=== PATIENT | female | born 1990 | race Hispanic/Latino ===

== ENCOUNTER 2023-09-02 17:27 | Emergency (ER) | payer BC ==
[~2023-09-02] VITALS: Ht 154.9 cm; Wt 80.3 kg
[2023-09-02 17:38] VITALS: BP 129/84; PULSE 78; RESP 18
[2023-09-02 18:24] LABS: BASOPHILS # (AUTO) 0.04 K/uL (0.00-0.20); BASOPHILS % (AUTO) 0.5 % (0.0-5.0); EOSINOPHILS # (AUTO) 0.33 K/uL (0.00-0.70); EOSINOPHILS % (AUTO) 3.8 % (0.0-8.0); HEMATOCRIT 39.5 % (36-48); IMMATURE GRANULOCYTE ABSOLUTE 0.03 K/uL (0-1); LYMPHOCYTES # (AUTO) 2.8 K/uL (1.0-4.8); LYMPHOCYTES % (AUTO) 32.1 % (21.0-51.0); MEAN CORPUSCULAR HEMOGLOBIN 28.3 pg (27.0-33.0); MEAN CORPUSCULAR HGB CONC 33.9 g/dL (32.0-36.0); MEAN CORPUSCULAR VOLUME 83.5 fL (79-99); MONOCYTES # (AUTO) 0.5 K/uL (0.1-1.0); MONOCYTES % (AUTO) 5.6 % (3.0-13.0); NEUTROPHILS # (AUTO) 5.1 K/uL (1.8-7.7); NEUTROPHILS % (AUTO) 57.7 % (40.0-77.0); PLATELET COUNT (AUTO) 376 K/uL (130-400); RED BLOOD CELL COUNT(AUTO) 4.73 MIL/uL (4.00-5.50); RED CELL DISTRIBUTION WIDTH 12.6 % (11.0-15.5); WHITE BLOOD COUNT (AUTO) 8.8 K/uL (4.8-10.8)
[2023-09-02 18:36] LABS: CREATININE 0.5 mg/dL (0.5-1.5); POTASSIUM 4.1 mmol/L (3.5-5.1)
[2023-09-02 18:40] LABS: ALBUMIN 4.1 g/dL (3.5-5.0); BILIRUBIN,TOTAL 0.5 mg/dL (0.2-1.0)
[2023-09-02 18:53] LABS: INR < 0.93 (0.85-1.15); PROTHROMBIN TIME 10.7 SEC (9.6-11.6)
[2023-09-02 18:54] LABS: PARTIAL THROMBOPLASTIN TIME 31.6 SEC (26.3-35.5)
[2023-09-02] MEDS ORDERED: IBUP-2077 PO (20:57)
== END 2023-09-02 21:18 | disposition left against medical advice (07) ==
LOC: EDH 17:27
DX: L52 Erythema nodosum (principal); Z90.49 Acquired absence of other specified parts of digestive tract
CPT/HCPCS: 36415; 80053; 85025; 85610; 85730

== ENCOUNTER 2024-12-30 13:14 | Emergency (ER) | payer BC ==
[~2024-12-30] VITALS: Ht 154.9 cm; Wt 81.6 kg
[2024-12-30 13:14] VITALS: BP 123/77
[~2024-12-30 13:14] MED LIST: IBUP-2077 PO
[2024-12-30 14:20] VITALS: PULSE 91; RESP 18
[2024-12-30 14:21] LABS: BASOPHILS # (AUTO) 0.03 K/uL (0.00-0.20); BASOPHILS % (AUTO) 0.3 % (0.0-5.0); EOSINOPHILS # (AUTO) 0.02 K/uL (0.00-0.70); EOSINOPHILS % (AUTO) 0.2 % (0.0-8.0); HEMATOCRIT 41.4 % (36-48); IMMATURE GRANULOCYTE ABSOLUTE 0.04 K/uL (0-1); LYMPHOCYTES # (AUTO) 2.2 K/uL (1.0-4.8); LYMPHOCYTES % (AUTO) 19.2 % (21.0-51.0); MEAN CORPUSCULAR HEMOGLOBIN 27.7 pg (27.0-33.0); MEAN CORPUSCULAR HGB CONC 32.4 g/dL (32.0-36.0); MEAN CORPUSCULAR VOLUME 85.7 fL (79-99); MONOCYTES # (AUTO) 0.2 K/uL (0.1-1.0); MONOCYTES % (AUTO) 1.7 % (3.0-13.0); NEUTROPHILS # (AUTO) 8.9 K/uL (1.8-7.7); NEUTROPHILS % (AUTO) 78.2 % (40.0-77.0); PLATELET COUNT (AUTO) 396 K/uL (130-400); RED BLOOD CELL COUNT(AUTO) 4.83 MIL/uL (4.00-5.50); RED CELL DISTRIBUTION WIDTH 12.7 % (11.0-15.5); WHITE BLOOD COUNT (AUTO) 11.3 K/uL (4.8-10.8)
[2024-12-30] MEDS: IpraTROPium/alBUTERol SULFATE 3 ML SOLUTION IH STA (14:23)
[2024-12-30 14:28] LABS: CREATININE 0.6 mg/dL (0.5-1.0); POTASSIUM 3.6 mmol/L (3.5-5.1)
--- NOTE | 2024-12-30 15:01 | HMCIMG ---
Exam Type: CHEST 1VW Clinical Information: cp,cough Comparison: None Findings: The lungs are clear of infiltrates. The heart is normal in size. The bony and soft tissue structures of the chest are unremarkable. Impression: Clear lungs.
[2024-12-30] MEDS: BENZONATATE 100 MG CAPSULE PO STA (15:03)
[2024-12-30] MEDS: dexaMETHasone SOD PHOSPHATE 4 MG/ML 1ML VIAL IVP STA (15:05)
[2024-12-30 16:24] LABS: RAPID GROUP A STREP negative (NEGATIVE)
[2024-12-30 16:27] LABS: SARS-CoV-2, RNA, NAAT NEGATIVE SARS CoV-2 (NEGATIVE)
[2024-12-30 16:34] LABS: INFLUENZA TYPE A Negative For Type A (NEGATIVE); INFLUENZA TYPE B Negative For Type B (NEGATIVE)
[2024-12-30] MEDS ORDERED: BUDE10.26 IH (16:40)
--- NOTE | 2024-12-30 16:51 | ERN ---
ED Note History of Present Illness Stated Complaint: COUGH Chief Complaint: Congestion Time Seen by MD: 13:15 Time Seen by Midlevel: 13:20 Dictation: 34-year-old female with a history of asthma coming in complaining of cough and shortness a breath. Patient states it has been going on for the last week. Patient states she went to her PCP and they put her on albuterol, antibiotics, and steroids however states has not seen a difference in his here for re- evaluation. At the time of examination patient was awake alert and oriented x4, speaking in full sentences, no respiratory distress noted, vital signs stable. Allergies: Coded Allergies: No Known Drug Allergies (Unverified Allergy, Unknown, 09/02/23) Home Meds Active Scripts Budesonide/Formoterol Fumarate (Budesonide-Formoterol 160-4.5) 160 Mcg-4.5 Mcg/Actuation Hfa.aer.ad, 2 PUFF IH BID PRN for SHORTNESS OF BREATH for 30 Days, #10.2 GM 0 Refills Prov:ARAVIND CROWDER PROFILER OPERATOR 12/30/24 Past Medical History Past Medical History: No Pertinent History Surgical History: Appendectomy, Cholecystectomy Surgical History Other: EXPLORATORY ABD SX, REPAIRED AORTA History: Not Applicable Review of System Dictation Constitutional: Negative for fever,chills, and weight loss Eyes: Negative for injury, pain,redness, and discharge ENT: Negative for injury,pain or swelling Cardiovascular: Negative for chest pain, palpitations, and edema Respiratory: Finding of cough and shortness a breath Abdomen/GI: Negative for abdominal pain, nausea, vomiting, diarrhea, and constipation Back: Negative for injury and pain : Negative for injury, bleeding and discharge MS/Extremity: Negative for injury and deformity Skin: Negative for rash, and discoloration Neuro: Negative for headache, weakness, numbness, tingling, and seizure Psych: Negative for suicide ideation, homicidal ideation, and hallucinations Review of Systems: was completed Initial Vital Sign VS Vital Signs Date Time Temp Pulse Resp B/P (MAP) Pulse Ox O2 Delivery O2 Flow Rate FiO2 12/30/24 13:14 98.8 92 18 123/77 94 Room Air 0 Physical Exam Dictation General: awake, alert, NAD Head/Face: Normocephalic, atraumatic Eyes: PERRL, EOMI, vision at baseline ENT: oral cavity clear, TMs clear, no signs of infection Neck: Trachea midline, supple, no nuchal rigidity Cardiovascular: RRR, normal S1/S2, No MRGs, no JVD Respiratory: CTAB, no respiratory distress, No rales or wheezes Abdomen: Soft, non-tender, non-distended, normal bowel sounds, no guarding or rebound. Skin: Warm, dry, normal turgor, no rash MS/Extremity: Pulses equal, no cyanosis, neurovascular intact, FROM Neuro: COAx4, GCS 15, strength 5/5, CN 2-12 intact, normal cerebellar exam, normal gait, Psych: Normal behavior, mood, and affect normal Results (Laboratory/Radiology) Laboratory/Radiology Laboratory Tests Test 12/30/24 14:07 12/30/24 16:00 White Blood Count 11.3 K/uL (4.8-10.8) H Red Blood Count 4.83 MIL/uL (4.00-5.50) Hemoglobin 13.4 g/dL (12.0-16.0) Hematocrit 41.4 % (36-48) Mean Corpuscular Volume 85.7 fL (79-99) Mean Corpuscular Hemoglobin 27.7 pg (27.0-33.0) Mean Corpuscular Hemoglobin Concent 32.4 g/dL (32.0-36.0) Red Cell Distribution Width 12.7 % (11.0-15.5) Platelet Count 396 K/uL (130-400) Mean Platelet Volume 9.5 fL (7.5-10.5) Immature Granulocyte % (Auto) 0.4 % (0-1) Neutrophils (%) (Auto) 78.2 % (40.0-77.0) H Lymphocytes (%) (Auto) 19.2 % (21.0-51.0) L Monocytes (%) (Auto) 1.7 % (3.0-13.0) L Eosinophils (%) (Auto) 0.2 % (0.0-8.0) Basophils (%) (Auto) 0.3 % (0.0-5.0) Neutrophils # (Auto) 8.9 K/uL (1.8-7.7) H Lymphocytes # (Auto) 2.2 K/uL (1.0-4.8) Monocytes # (Auto) 0.2 K/uL (0.1-1.0) Eosinophils # (Auto) 0.02 K/uL (0.00-0.70) Basophils # (Auto) 0.03 K/uL (0.00-0.20) Absolute Immature Granulocyte (auto 0.04 K/uL (0-1) Nucleated Red Blood Cells 0.0 % (0.0-0.19) Sodium Level 140 mmol/L (136-145) Potassium Level 3.6 mmol/L (3.5-5.1) Chloride Level 104 mmol/L (101-111) Carbon Dioxide Level 31 mmol/L (21-32) Blood Urea Nitrogen 10 mg/dL (7-18) Creatinine 0.6 mg/dL (0.5-1.0) Glomerular Filtration Rate Calc 122 mL/min (>90) Random Glucose 96 mg/dL (70-105) Lactic Acid Level 1.2 mmol/L (0.8-2.5) Total Calcium 8.6 mg/dL (8.5-10.1) Human Chorionic Gonadotropin, Quant 1 mIU/mL (0-5) Influenza Type A Antigen Negative For Type A Influenza Type B Antigen Negative For Type B SARS-CoV-2, RNA, NAAT NEGATIVE SARS CoV-2 Group A Streptococcus Rapid negative (NEGATIVE) Labs Reviewed?: Yes X-RAY Comment: [address] [id number] IMAGING REPORT Signed PATIENT: FELICITAS MORALES MR#: [id number] : 1990 SEX: F AGE: 34 LOCATION: [facility] ORDER 1402 STATUS: REG ER REPORT#: [id number] SERVICE 1400 REASON: cp,cough ORDERING PHYSICIAN: ARAVIND CROWDER NP PROCEDURE: CXR1VW - CHEST 1VW Exam Type: CHEST 1VW Clinical Information: cp,cough Comparison: None Findings: The lungs are clear of infiltrates. The heart is normal in size. The bony and soft tissue structures of the chest are unremarkable. Impression: Clear lungs. DICTATED BY: ADAN VILLARREAL MD DATE: 12/30/24 1454 ELECTRONICALLY SIGNED BY: ADAN VILLARREAL MD DATE: 12/30/24 1501 ED Course ED Course Orders Procedure Category Date Status Time Cbc With Differential LAB 12/30/24 Complete 14:00 Basic Metabolic Panel LAB 12/30/24 Complete 14:00 Lactic Acid LAB 12/30/24 Complete 14:00 Covid Rna Naat LAB 12/30/24 Complete 14:00 Influenza Type A & B, LAB 12/30/24 Complete Rapid 14:00 Rapid (Group A Strep) LAB 12/30/24 Complete 14:00 Chest 1vw RAD 12/30/24 Resulted 14:00 Hcg,Quantitative LAB 12/30/24 Complete 14:00 Dexamethasone 4mg/Ml PHA 12/30/24 Complete 1ml Vial (Dexametha 14:00 Benzonatate 100 Mg PHA 12/30/24 Complete Capsule (Tessalon 100 14:00 Ipratropium/Albuterol PHA 12/30/24 Complete Neb (Duoneb) 14:00 Current Medications Medications (Trade) Dose Ordered Sig/Maria Isabel Route PRN Reason Start Time Stop Time Status Last Admin Dose Admin Albuterol (DUOneb) 1 UDVIAL ONCE STAT IH 12/30/24 14:00 12/30/24 14:05 DC 12/30/24 14:23 Benzonatate (Tessalon 100mg Caps) 200 mg ONCE STAT PO 12/30/24 14:00 12/30/24 14:05 DC 12/30/24 15:03 Dexamethasone Sodium Phosphate (dexaMETHasone 4MG/ML 1ML VIAL) 6 mg ONCE STAT IVP 12/30/24 14:00 12/30/24 14:05 DC 12/30/24 15:05 Vital Signs Date Time Temp Pulse Resp B/P (MAP) Pulse Ox O2 Delivery O2 Flow Rate FiO2 12/30/24 14:20 91 18 12/30/24 13:14 98.8 92 18 123/77 94 Room Air 0 Medical Decision Making MDM MDM: 34-year-old female with a history of asthma coming in complaining of cough and shortness a breath. Patient states it has been going on for the last week. Patient states she went to her PCP and they put her on albuterol, antibiotics, and steroids however states has not seen a difference in his here for re- evaluation. At the time of examination patient was awake alert and oriented x4, speaking in full sentences, no respiratory distress noted, vital signs stable. Blood work unremarkable. SARs swabs negative. Chest x-ray shows no acute findi ng. Patient received nebulizer treatment, steroids and cough medication while in the emergency room. Case discussed with the ER MD, ER MD recommended switch patient's inhaler from the albuterol to budesonide. Patient received different inhaler prescription. Educated patient extensively on taking her medications and switching her albuterol to this new inhaler. Educated if this does not help her she needs to follow up with her PCP as she might need different prescriptions. Patient verbalized understanding, answered all questions. Also discussed on red flag symptoms of when to return back to the ER patient verbalized understanding, answered all questions. At the time of discharge patient's requesting Diflucan because she was on prednisone and states she gets yeast infections. Differential diagnosis: Pneumonia, bronchitis, influenza, COVID, flu, viral syndrome Rationale: Tests considered and ordered secondary to shared decision making include: Previous outside records reviewed: Old ER visits. Risk of complication and/or morbidity or mortality of patient management: None Medications-Per medication reconciliation Need for hospitalization: Patient does not meet criteria for hospitalization. Need for emergency major/minor surgery: No There are no social concerns with this patient. Prescription drug management Prescriptions will include symptomatic care Patient's prior external medical records from other ER visits were reviewed by me as indicated. Prior testing and results from previous visits were reviewed. Prior tests were taken into account with medical decision making and resource utilization, independent historian/historians were used to obtain complete medical history. I independently interpreted the test that were performed, results were reviewed by me and considered findings on radiology if ordered. Medical management and examination interpretation discussions were had by me with other qualified healthcare professionals as indicated for the patient's care. DX & DISP Disposition: Discharge Departure Impression: Primary Impression: Bronchitis Condition: Stable Scripts Fluconazole (Fluconazole) 150 Mg Tablet 1 TAB PO ONCE for 1 Day, #1 TAB 0 Refills Prov: ARAVIND CROWDER PROFILER OPERATOR 12/30/24 Budesonide/Formoterol Fumarate (Budesonide-Formoterol 160-4.5) 160 Mcg-4.5 Mcg/Actuation Hfa.aer.ad 2 PUFF IH BID PRN for SHORTNESS OF BREATH for 30 Days, #10.2 GM 0 Refills Prov: CROWDERNILAYARAVIND NP 12/30/24 Additional Instructions: Complete or antibiotics, continue taking your cough medication and switch the albuterol to the medication that I prescribed today. Follow up with your primary doctor in 1-2 days. Return to the ER if you have worsening symptoms. Referrals: JUSTO KELLEY DO (PCP) Time of Disposition: 16:46 I have reviewed the case, and I agree with, Diagnosis and Plan ARAVIND CROWDER NP December 30, 2024 16:50
[2024-12-30 17:04] VITALS: PULSE 60; RESP 16; TEMP 98; O2SAT 98
[2024-12-30] MEDS ORDERED: FLUC150T48 PO (17:14)
== END 2024-12-30 17:00 | disposition home or self-care (01) ==
LOC: EDH 13:14
DX: J40 Bronchitis, not specified as acute or chronic (principal); R10.2 Pelvic and perineal pain; Z90.49 Acquired absence of other specified parts of digestive tract; Z20.822 Contact with and (suspected) exposure to COVID-19
CPT/HCPCS: 99284; 96374; 71045; 87635; 80048; 84702; 85025; 87880; 87804 ×2; 83605; 36415; 94640; J1100